=== PATIENT | female | born 1990 | race Caucasian/White ===

== ENCOUNTER 2017-06-15 03:17 | Emergency (ER) | payer OTHER ==
--- NOTE | ~2017-06-15 | ER ---
[facility]: [facility] AGE: 26 Y [address] ROOM: [place] [id number] LOCATION: [facility] ADMIT DATE: 06/15/2017 ER/Outpatient Report DISCHARGE DATE: 06/15/2017 FAMILY PHYSICIAN: Ramesh Andres MD ATTENDING PHYSICIAN: Ari Byrd Time of Arrival: 0320 hours. Time of Evaluation: 0320 hours. CHIEF COMPLAINT: Migraine. HISTORY OF PRESENT ILLNESS: The patient is a 26-year-old female who presents to the emergency department today with chief complaint of migraine. She reports this started at 0130 hours. Her is unclear whether she passed out. Does report some nausea. No vomiting. No fevers or chills. She does have a history of migraines. Last similar headache of migraine to this was 2 months ago. It is not the worst headache of her life. It is a throbbing type pain. It is not sudden onset. It is currently 7/10 in severity. She does report some nasal congestion. PAST MEDICAL HISTORY: Migraines, anxiety, and depression. PAST SURGICAL HISTORY: Ankle, wrist. SOCIAL HISTORY: The patient denies any tobacco, alcohol, or illicit drug use. ALLERGIES: NO KNOWN DRUG ALLERGIES. MEDICATIONS: Please see list. REVIEW OF SYSTEMS: All systems are reviewed by myself and are negative with the exception of those discussed in HPI and past medical history. PHYSICAL EXAMINATION: VITAL SIGNS: Weight 139.7 kg, blood pressure 162/95, pulse 89, respiratory rate 16, temperature 97.4, oxygen saturation 98% on room air. GENERAL: The patient is a 26-year-old female, who appears stated age, in no PAT[facility]'S NAME: [facility] AGE: 26 Y [address] ROOM: [place] [id number] LOCATION: [facility] ADMIT DATE: 06/15/2017 ER/Outpatient Report DISCHARGE DATE: 06/15/2017 FAMILY PHYSICIAN: Ramesh Andres MD ATTENDING PHYSICIAN: Ari Byrd acute distress at this time. HEENT: Head: Normocephalic, atraumatic. Pupils are equal, round, and reactive to light. Extraocular motions are intact. Nares are patent bilaterally. TMs are clear. Oropharynx is clear. NECK: Supple. There is no nuchal rigidity. CARDIOVASCULAR: Regular rate and rhythm. No murmurs, rubs, or gallops. LUNGS: Clear to auscultation bilaterally. No wheezes, rales, or rhonchi. ABDOMEN: Soft, nontender, and nondistended. No rebound, rigidity, or guarding. MUSCULOSKELETAL: The patient moves all 4 extremities. 5/5 muscle strength. NEUROLOGICAL: GCS 15. Alert and oriented x4. Cranial nerves 2 through 12 are intact. Normal [id number]. Normal rapid hand movement. Equal wiper blender strength bilaterally. Downward going toes. No clonus. 2/4 reflexes. SKIN: Warm and dry. There are no rashes or lesions noted. LABORATORY DATA AND X-RAYS: EKG is obtained, is interpreted by myself at 0329 hours. Showed sinus rhythm with a rate of 63, normal axis, normal interval. No ST elevation, ST depression, or T-wave inversions. IMPRESSION: 1. Acute cephalgia, suspect migraine type. 2. Initial visit. EMERGENCY DEPARTMENT COURSE: The patient was brought back to the examination room. Seen and evaluated by myself. EKG is obtained as described above. I have discussed the results with the patient. I have recommended a close followup with primary care doctor. She is to follow up with Dr. Andres in 2-3 days. I have written a prescription for Compazine for home. I have discussed [id number] instructions including worsening symptoms or any other concerns, to return to the emergency department as soon as possible. The patient is agreeable without further questions. DISPOSITION: The patient discharged home in good condition. DO NELI MONIQUE/fiona PATIENT'S NAME: [facility]RICK [facility] AGE: 26 Y [address] ROOM: [place] [address] LOCATION: ED ADMIT DATE: 06/15/2017 ER/Outpatient Report DISCHARGE DATE: 06/15/2017 FAMILY PHYSICIAN: Ramesh Andres MD ATTENDING PHYSICIAN: Ari Byrd /[id number] d: 06/16/[id number] t: 06/16/[id number], OUTPATIENT REPORT
== END 2017-06-15 04:25 | disposition disaster alternative care site (69) ==
LOC: GMED 03:17
DX: R51 Headache (principal); F41.9 Anxiety disorder, unspecified; F32.9 Major depressive disorder, single episode, unspecified; Z98.890 Other specified postprocedural states; Z79.899 Other long term (current) drug therapy
CPT/HCPCS: J0780; J1200; J1885; J7030